=== PATIENT | female | born 1980 | race Hispanic/Latino ===

== ENCOUNTER → 2020-10-28 | Day surgery (SDC) | payer BC | LOC: BICULT 12:32 | PROVIDERS: ATTEND Obstetrics & Gynecology | PROC: 0H9 Skin and Breast, Drainage (ICD-10-PCS; principal; 2020-10-28) | DX: D24.1 Benign neoplasm of right breast (principal) | CPT/HCPCS: 19083; 88305 ==